=== PATIENT | female | born 1980 | race Caucasian/White ===

== ENCOUNTER → 2018-10-06 | Outpatient (CLI) | payer MEDICARE, OTHER ==
[2018-10-06 18:49] LABS: T4, Free (Free Thyroxine) 1.1 ng/dL (0.80-1.80)
[2018-10-06 18:50] LABS: Thyroid Peroxidase Antibodies 28.6 U/mL (0.0-60.0)
== END | disposition home or self-care (01) ==
LOC: LABWHC1 13:26
PROVIDERS: ATTEND Internal Medicine Endocrinology, Diabetes & Metabolism
DX: E04.2 Nontoxic multinodular goiter (principal)
CPT/HCPCS: 36415; 84439; 84443; 84445; 84480; 86376

== ENCOUNTER 2019-03-06 10:40 | Day surgery (SDC) | payer MEDICARE, OTHER ==
[2019-03-01 16:26] VITALS: BMI 29.9
--- NOTE | 2019-03-06 07:19 | P.GSHP ---
History of Present Illness H&P Date: 03/06/19 CHIEF COMPLAINT: Change in bowel habits HISTORY OF PRESENT ILLNESS: The patient is a 38-year-old female who presents for colon screen. Lower endoscopy was offered for further evaluation and management. PAST MEDICAL HISTORY: Please see list. PAST SURGICAL HISTORY: Please see list. MEDICATIONS: Please see list. ALLERGIES: Please see list. SOCIAL HISTORY: No illicit drug use FAMILY HISTORY: No reports of Crohn disease or ulcerative colitis. REVIEW OF ORGAN SYSTEMS: CONSTITUTIONAL: No reports of fevers or chills. PHYSICAL EXAM: VITAL SIGNS: Stable GENERAL: Well-developed pleasant in no acute distress. HEENT: No scleral icterus. Extraocular movements grossly intact. Moist buccal mucosa. NECK: Supple without lymphadenopathy. CHEST: Unlabored respirations. Equal bilateral excursions. CARDIOVASCULAR: Regular rate and rhythm. Distal 2+ pulses. ABDOMEN: Soft, nontender, nondistended. MUSCULOSKELETAL: No clubbing, cyanosis, or edema. ASSESSMENT: 1. Change in bowel habits PLAN: 1. Recommend proceeding with a lower endoscopy Past Medical History Past Medical History: Thyroid Disorder Additional Past Medical History / Comment(s): HYPERTENSION WITH , MIGRAINE HEADACHE, DR WATCHING THYROID LEVELS AT THIS TIME , History of Any Multi-Drug Resistant Organisms: None Reported Past Surgical History: Section, Tonsillectomy Additional Past Surgical History / Comment(s): C SECTION X2, DEBRIDEMENT OF RIGHT LEG, SKIN GRAFT TO RIGHT LEG, NERVE BLOCKS FOR PAIN MANAGEMENT Past Anesthesia/Blood Transfusion Reactions: No Reported Reaction Smoking Status: Current some day smoker - Past Family History Mother Family Medical History: No Reported History Medications and Allergies Home Medications Medication Instructions Recorded Confirmed Type Cephalexin [Keflex] 250 mg PO QID 03/01/19 03/01/19 History Sulfamethox-Tmp 800-160Mg [Bactrim 1 tab PO Q12HR 03/01/19 03/01/19 History DS 800-160 mg] Allergies Allergy/AdvReac Type Severity Reaction Status Date / Time No Known Allergies Allergy Verified 03/01/19 16:05
[~2019-03-06 10:40] MED LIST: LACTATED RINGERS 1,000 ML IV SCH; LIDOCAINE 1% 20 ML VIAL (10MG/ML) FOR IV START INTRADERMA PRN
[2019-03-06 11:44] VITALS: TEMP 98.4
[2019-03-06] MEDS ORDERED: LIDOCAINE 1% INJ 10MG/ML (20 ML MDV) ONE (12:36)
[2019-03-06] MEDS ORDERED: PROPOFOL 10 MG/ML 20 ML VIAL IV ONE (12:36)
--- NOTE | 2019-03-06 13:05 | P.PCN ---
Date of Procedure: 03/06/19 Description of Procedure: PREOPERATIVE DIAGNOSIS: Rectal bleeding History of ileocolitis POSTOPERATIVE DIAGNOSIS: Rectal bleeding History of ileocolitis External hemorrhoids, grade 3 Internal hemorrhoids, grade 2 OPERATION: Colonoscopy with cold forceps biopsies along the terminal ileum Colonoscopy to the ileocecal valve and appendiceal orifice. SURGEON: Destini Naylor MD. ANESTHESIA: MAC. INDICATIONS: The patient is a 38-year-old female who presents for with history of rectal bleeding. Benefits and risks were described and informed consent was obtained. DESCRIPTION OF PROCEDURE: The patient had undergone Suprep. She had been brought into the operating room and laid in the left lateral decubitus position. After adequate intravenous sedation, the rectum was examined with 2% lidocaine jelly. External hemorrhoids were encountered. The rectal tone was within normal limits. No lesions were palpated in the rectal vault. An Olympus colonoscope was advanced until the ileocecal valve and appendiceal orifice were clearly viewed. The terminal ileum was intubated with multiple biopsies were obtained with cold forceps for ileocolitis. The prep was good. The scope was removed with visualization of each mucosal fold. No scattered diverticulosis was encountered. No colonic polyps were found. Retroflexion of the scope demonstrated grade 2 internal hemorrhoids without active bleeding or inflammation. The colon was desufflated. The patient had tolerated the procedure well. Withdrawal time was over 6 minutes. FINDINGS: Aronchick preparation quality scale 2 (1-5) Internal hemorrhoids, grade 2 External prolapsed hemorrhoids, grade 3 No arteriovenous malformations. No adenomatous polyps. Multiple biopsies obtained of terminal ileum to evaluate for ileocolitis RECOMMENDATIONS: Lower endoscopy at age 45 for screening guidelines Plan - Discharge Summary Discharge Rx Participant: Yes New Discharge Prescriptions: No Action Cephalexin [Keflex] 250 mg PO QID Sulfamethox-Tmp 800-160Mg [Bactrim DS 800-160 mg] 1 tab PO Q12HR Discharge Medication List Cephalexin [Keflex] 250 mg PO QID 03/01/19 [History] Sulfamethox-Tmp 800-160Mg [Bactrim DS 800-160 mg] 1 tab PO Q12HR 03/01/19 [History] Follow up Appointment(s)/Referral(s): Destini Naylor MD [STAFF PHYSICIAN] - 03/14/19 Patient Instructions/Handouts: *Surgery [facility] - (Anesthesia) Endoscopy Discharge Instructions, Colonoscopy (DC), Rectal Bleeding (GEN), Hemorrhoids (DC) Activity/Diet/Wound Care/Special Instructions: Repeat colonoscopy for screening guidelines, age 45 Discharge Disposition: HOME SELF-CARE
[2019-03-06 13:12] VITALS: RESP 18
[2019-03-06 13:13] VITALS: BP 140/77; PULSE 70
== END 2019-03-06 13:27 | disposition home or self-care (01) ==
LOC: ORWHC2ENDO 10:40
PROVIDERS: ATTEND Surgery Plastic and Reconstructive Surgery
DX: K64.1 Second degree hemorrhoids (principal); K64.2 Third degree hemorrhoids; K52.9 Noninfective gastroenteritis and colitis, unspecified; E07.9 Disorder of thyroid, unspecified; G43.909 Migraine, unspecified, not intractable, without status migrainosus; F17.200 Nicotine dependence, unspecified, uncomplicated
CPT/HCPCS: 81025; 88305; 45380; J2001; J2704